=== PATIENT | female | born 1960 | race Native Hawaiian/Other Pacific Islander ===

== ENCOUNTER 2018-11-16 10:57 | Emergency (ER) | payer OTHER ==
[~2018-11-16] VITALS: Ht 167.6 cm; Wt 74.8 kg
[2018-11-16 11:01] VITALS: BP 160/90; TEMP 98.4
== END 2018-11-16 12:33 | disposition home or self-care (01) ==
LOC: ED 10:57
DX: S20.212A Contusion of left front wall of thorax, initial encounter (principal); W20.8XXA Other cause of strike by thrown, projected or falling object, initial encounter
CPT/HCPCS: 99282